=== PATIENT | female | born 2000 | race Caucasian/White ===

== ENCOUNTER 2020-10-03 00:02 | Emergency (ER) | payer MEDICAID, OTHER, SELFPAY ==
[~2020-10-03] VITALS: Ht 170.2 cm; Wt 62.8 kg
[2020-10-03 00:06] VITALS: BP 149/71
== END 2020-10-03 02:18 | disposition left against medical advice (07) ==
LOC: ED 02:12
DX: O26.892 Other specified pregnancy related conditions, second trimester (principal); R06.02 Shortness of breath; R51.9 Headache, unspecified; Z3A.23 23 weeks gestation of pregnancy
CPT/HCPCS: 93005

== ENCOUNTER 2020-11-15 16:56 | Outpatient (CLI) | payer SELFPAY ==
[~2020-11-15] VITALS: Ht 170.2 cm; Wt 63.6 kg
[2020-11-15 17:28] LABS: MICROSCOPIC AUTO
== END 2020-11-15 20:36 | disposition home or self-care (01) ==
LOC: LDOP 16:56
PROVIDERS: ATTEND Obstetrics & Gynecology
DX: O26.893 Other specified pregnancy related conditions, third trimester (principal); R10.9 Unspecified abdominal pain; N13.30 Unspecified hydronephrosis; Z3A.29 29 weeks gestation of pregnancy
CPT/HCPCS: 59025; 76770; 76817; 76819; 81001; 87086

== ENCOUNTER 2020-11-18 18:19 | Inpatient (IN) | payer BC ==
[~2020-11-18] VITALS: Ht 170.2 cm; Wt 61.8 kg
[2020-11-21 08:33] VITALS: BP 94/53
== END 2020-11-21 18:40 | disposition home or self-care (01) | DRG 832 ==
LOC: LDOP 18:19 → OBSVTOIN 20:30 → LDIP 20:30
PROVIDERS: ADMIT Obstetrics & Gynecology; ATTEND Obstetrics & Gynecology
DX: O23.03 Infections of kidney in pregnancy, third trimester (principal); O41.03X0 Oligohydramnios, third trimester, not applicable or unspecified; N13.6 Pyonephrosis; O12.13 Gestational proteinuria, third trimester; O36.8330 Maternal care for abnormalities of the fetal heart rate or rhythm, third trimester, not applicable or unspecified; Z20.822 Contact with and (suspected) exposure to COVID-19; O26.893 Other specified pregnancy related conditions, third trimester; K04.7 Periapical abscess without sinus; Z3A.30 30 weeks gestation of pregnancy

== ENCOUNTER → 2020-11-27 | Outpatient (CLI) | payer BC ==
[2020-11-27 18:03] LABS: MICROSCOPIC INDICATED
== END | disposition home or self-care (01) ==
LOC: LDOP 16:57
PROVIDERS: ATTEND Obstetrics & Gynecology
DX: O36.8130 Decreased fetal movements, third trimester, not applicable or unspecified (principal); Z3A.31 31 weeks gestation of pregnancy
CPT/HCPCS: 59025; 81001; 87086